=== PATIENT | male | born 1975 | race Caucasian/White ===

== ENCOUNTER 2021-09-28 09:53 | Inpatient (IN) | payer SELFPAY ==
[2021-09-28] MEDS ORDERED: Sodium Chloride 0.9% 10 ML Syringe FLUSH PRN ×3 (10:03→14:32)
--- NOTE | 2021-09-28 10:06 | EDM.PDOC ---
ED HPI GENERAL MEDICAL PROBLEM - General Chief Complaint: Respiratory Problem Stated Complaint: POSSIBLE COVID Time Seen by Provider: 09/28/21 10:05 Source of Information: Reports: Patient, RN. Denies: Old Records History Limitations: Reports: No Limitations - History of Present Illness INITIAL COMMENTS - FREE TEXT/NARRATIVE: 46 yo male is here with SOB. His was recently dx with Covid and has since recovered. He became ill initially on 09/22. Had a fever for the first 2 days only. Became SOB only on the weekend. Has no doctor and was not seen before today. Onset: Gradual Onset Date: 09/22/21 Duration: Day(s):, Getting Worse Location: Reports: Chest Quality: Reports: Other (no pain) Severity: Moderate (SOB) Improves with: Reports: Other (oxygen) Worsens with: Reports: Other (time, exertion) Context: Reports: Other (See HPI) Associated Symptoms: Reports: Cough, Shortness of Breath. 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 Denies: Fever (resolved) HEENT: Reports: No Symptoms Respiratory: Reports: Shortness of Breath, Cough. Denies: Wheezing, Pleuritic Chest Pain, Sputum, Hemoptysis Cardiovascular: Reports: No Symptoms Endocrine: Reports: No Symptoms GI/Abdominal: Reports: No Symptoms : Reports: No Symptoms Musculoskeletal: Reports: No Symptoms Skin: Reports: No Symptoms Neurological: Reports: No Symptoms ED EXAM, GENERAL - Physical Exam Exam: See Below Exam Limited By: No Limitations General Appearance: Alert, WD/WN, Mild Distress Eye Exam: Bilateral Eye: Normal Inspection Ears: Normal External Exam, Normal Canal, Hearing Grossly Normal Ear Exam: Bilateral Ear: Auricle Normal, Canal Normal Nose: Normal Inspection, No Blood Throat/Mouth: Normal Inspection, Normal Lips, Normal Oropharynx, Normal Voice, No Airway Compromise Head: Atraumatic, Normocephalic Neck: Normal Inspection Respiratory/Chest: No Accessory Muscle Use, Respiratory Distress (mild with tachypnea), Crackles Cardiovascular: Regular Rate, Rhythm, No Edema GI/Abdominal: Soft, Non-Tender Back Exam: Normal Inspection Extremities: Normal Inspection Neurological: Alert, Oriented, CN II-XII Intact, Normal Cognition, No Motor/Sen reilly Deficits Psychiatric: Normal Affect, Normal Mood Skin Exam: Warm, Dry, Intact, Normal Color, No Rash Course - Vital Signs Text/Narrative:: Dr. Galeana aware @ 1255h Last Recorded V/S: Last Vital Signs Temp 36.8 C 09/28/21 10:23 Pulse 92 09/28/21 14:36 Resp 16 09/28/21 14:36 BP 126/76 09/28/21 14:36 Pulse Ox 95 09/28/21 14:36 - Orders/Labs/Meds Orders: Active Orders 24 hr Category Date Time Status Patient Status [ADT] Routine ADT 09/28/21 14:32 Active Ambulate [RC] QID Care 09/28/21 14:32 Active Height and Weight [RC] DAILY Care 09/28/21 14:32 Active Intake and Output [RC] QSHIFT Care 09/28/21 14:32 Active Notify Provider Vital Signs [RC] ASDIRECTED Care 09/28/21 14:32 Active Oxygen Therapy [RC] PRN Care 09/28/21 14:32 Active Pulse Oximetry [RC] CONTINUOUS Care 09/28/21 14:32 Active Up to Chair [RC] QID Care 09/28/21 14:32 Active VTE/DVT Education [RC] Per Unit Routine Care 09/28/21 14:32 Active Vital Signs [RC] Q4H Care 09/28/21 14:32 Active Regular Diet [DIET] Diet 09/28/21 Lunch Active C-REACTIVE PROTEIN [CHEM] AM Lab 09/29/21 05:11 Ordered CBC WITH AUTO DIFF [HEME] AM Lab 09/29/21 05:11 Ordered COMPREHENSIVE METABOLIC PN,CMP [CHEM] AM Lab 09/29/21 05:11 Ordered D Dimer [D-DIMER QUANTITATIVE] [COAG] AM Lab 09/29/21 05:11 Ordered Acetaminophen [TylenoL] Med 09/28/21 14:32 Active 650 mg PO Q4H PRN Enoxaparin [Lovenox] Med 09/28/21 16:00 Active 40 mg SUBCUT Q24H Ondansetron [Zofran] Med 09/28/21 14:32 Active 4 mg IV Q4H PRN Remdesivir 100 mg Med 09/29/21 14:00 Active Sodium Chloride 0.9% [Normal Saline] 100 ml IV Q24H Sodium Chloride 0.9% [Saline Flush] Med 09/28/21 14:32 Active 10 ml FLUSH ASDIRECTED PRN dexAMETHasone [Decadron] Med 09/29/21 09:00 Active 6 mg IVPUSH DAILY polyethylene glycoL 3350 [MiraLAX] Med 09/28/21 14:32 Active 17 gm PO DAILY PRN Saline Lock Insert [OM.PC] Routine Oth 09/28/21 14:32 Ordered Resuscitation Status Routine Resus Stat 09/28/21 13:04 Ordered Medication Orders Acetaminophen (Acetaminophen 325 Mg Tab) 650 mg PO Q4H PRN PRN Reason: Pain (Mild 1-3)/fever Dexamethasone (Dexamethasone 4 Mg/Ml Sdv) 6 mg IVPUSH DAILY TIN Enoxaparin Sodium (Enoxaparin 40 Mg/0.4 Ml Syringe) 40 mg SUBCUT Q24H TIN Last Admin: 09/28/21 15:57 Dose: 40 mg Documented by: SWANRHO Remdesivir 100 mg/ Sodium (Chloride) 100 mls @ 100 mls/hr IV Q24H TIN Stop: 10/02/21 14:59 Ondansetron HCl (Ondansetron 4 Mg/2 Ml Sdv) 4 mg IV Q4H PRN PRN Reason: Nausea/Vomiting Polyethylene Glycol (Polyethylene Glycol 3350 Powder 17 Gm Packet) 17 gm PO DAILY PRN PRN Reason: Constipation Sodium Chloride (Sodium Chloride 0.9% 10 Ml Syringe) 10 ml FLUSH ASDIRECTED PRN PRN Reason: Keep Vein Open Labs: Laboratory Tests 09/28/21 09/28/21 09/28/21 Range/Units 10:04 10:10 10:10 WBC 12.9 H (4.5-11.0) K/uL RBC 4.03 L (4.30-5.90) M/uL Hgb 11.5 L (12.0-15.0) g/dL Hct 33.4 L (40.0-54.0) % MCV 83 (80-98) fL MCH 29 (27-31) pg MCHC 34 (32-36) % Plt Count 361 (150-400) K/uL D-Dimer, Quantitative 2529.61 H (0.0-500.0) ng/mL Sodium 129 L (140-148) mmol/L Potassium 4.4 (3.6-5.2) mmol/L Chloride 90 L (100-108) mmol/L Carbon Dioxide 21 (21-32) mmol/L Anion Gap 22.4 H (5.0-14.0) mmol/L BUN 30 H (7-18) mg/dL Creatinine 1.5 H (0.8-1.3) mg/dL Est Cr Clr Drug Dosing 62.86 mL/min Estimated GFR (MDRD) 50 L (>60) Glucose 109 H (74-106) mg/dL Calcium 9.8 (8.5-10.1) mg/dL Total Bilirubin 0.7 (0.2-1.0) mg/dL AST 108 H (15-37) U/L ALT 147 H (12-78) U/L Alkaline Phosphatase 143 H (46-116) U/L Total Protein 8.5 H (6.4-8.2) g/dL Albumin 3.2 L (3.4-5.0) g/dL Globulin 5.3 H (2.3-3.5) g/dL Albumin/Globulin Ratio 0.6 L (1.2-2.2) SARS-CoV-2 RNA (MARVIN) (NEGATIVE) 09/28/21 Range/Units 10:25 WBC (4.5-11.0) K/uL RBC (4.30-5.90) M/uL Hgb (12.0-15.0) g/dL Hct (40.0-54.0) % MCV (80-98) fL MCH (27-31) pg MCHC (32-36) % Plt Count (150-400) K/uL D-Dimer, Quantitative (0.0-500.0) ng/mL Sodium (140-148) mmol/L Potassium (3.6-5.2) mmol/L Chloride (100-108) mmol/L Carbon Dioxide (21-32) mmol/L Anion Gap (5.0-14.0) mmol/L BUN (7-18) mg/dL Creatinine (0.8-1.3) mg/dL Est Cr Clr Drug Dosing mL/min Estimated GFR (MDRD) (>60) Glucose (74-106) mg/dL Calcium (8.5-10.1) mg/dL Total Bilirubin (0.2-1.0) mg/dL AST (15-37) U/L ALT (12-78) U/L Alkaline Phosphatase (46-116) U/L Total Protein (6.4-8.2) g/dL Albumin (3.4-5.0) g/dL Globulin (2.3-3.5) g/dL Albumin/Globulin Ratio (1.2-2.2) SARS-CoV-2 RNA (MARVIN) Positive H (NEGATIVE) Meds: Medications Generic Name Dose Route Start Last Admin Trade Name Freq PRN Reason Stop Dose Admin Acetaminophen 650 mg 09/28/21 14:32 Acetaminophen 325 Mg Tab PO Q4H PRN Pain (Mild 1-3)/fever Dexamethasone 6 mg 09/29/21 09:00 Dexamethasone 4 Mg/Ml Sdv IVPUSH DAILY TIN Enoxaparin Sodium 40 mg 09/28/21 16:00 09/28/21 15:57 Enoxaparin 40 Mg/0.4 Ml Syringe SUBCUT 40 mg Q24H TIN Administration Remdesivir 100 mg/ Sodium 100 mls @ 100 mls/hr 09/29/21 14:00 Chloride IV 10/02/21 14:59 Q24H TIN Ondansetron HCl 4 mg 09/28/21 14:32 Ondansetron 4 Mg/2 Ml Sdv IV Q4H PRN Nausea/Vomiting Polyethylene Glycol 17 gm 09/28/21 14:32 Polyethylene Glycol 3350 Powder 17 Gm Packet PO DAILY PRN Constipation Sodium Chloride 10 ml 09/28/21 14:32 Sodium Chloride 0.9% 10 Ml Syringe FLUSH ASDIRECTED PRN Keep Vein Open Discontinued Medications Generic Name Dose Route Start Last Admin Trade Name Freq PRN Reason Stop Dose Admin Dexamethasone 6 mg 09/28/21 12:58 09/28/21 13:52 Dexamethasone 4 Mg/Ml Sdv IVPUSH 09/28/21 12:59 6 mg ONETIME ONE Administration Sodium Chloride 1,000 mls @ 125 mls/hr 09/28/21 11:15 Normal Saline IV ASDIRECTED TIN Sodium Chloride 100 mls @ 4 mls/sec 09/28/21 11:30 09/28/21 12:12 Normal Saline IV 09/28/21 11:31 4 mls/sec ASDIRECTED TIN Administration Remdesivir 200 mg/ Sodium 250 mls @ 250 mls/hr 09/28/21 13:30 09/28/21 13:52 Chloride IV 09/28/21 14:29 250 mls/hr ONETIME ONE Administration Iopamidol 100 ml 09/28/21 11:30 09/28/21 12:12 Iopamidol 755 Mg/Ml 100 Ml Bottle IV 09/28/21 11:31 100 ml . DIRECTED TIN Administration Sodium Chloride 10 ml 09/28/21 10:03 09/28/21 10:35 Sodium Chloride 0.9% 10 Ml Syringe FLUSH 10 ml ASDIRECTED PRN Administration Keep Vein Open Sodium Chloride 10 ml 09/28/21 11:26 09/28/21 12:03 Sodium Chloride 0.9% 10 Ml Syringe FLUSH 09/28/21 11:27 10 ml ONETIME PRN Administration per radiology protocol - Radiology Interpretation Free Text/Narrative:: Angio Chest- Impression: 1. No pulmonary emboli. 2. Bilateral diffuse ground-glass opacities with basilar dense consolidation reflecting COVID. Please note that all CT scans at this facility use dose modulation, iterative reconstruction, and/or weight-based dosing when appropriate to reduce radiation dose to as low as reasonably achievable. Dictated by Radha Nye MD @ 09/28/2021 12:55:[address] Results Date: 09/28/21 CT Results Time: 12:57 Departure - Departure Time of Disposition: 14:35 Disposition: Admitted As Inpatient 65 Condition: Serious Clinical Impression: COVID-19, Hypoxemia - Discharge Information *PRESCRIPTION DRUG MONITORING PROGRAM REVIEWED*: Not Applicable *COPY OF PRESCRIPTION DRUG MONITORING REPORT IN PATIENT MIKAELA: Not Applicable Sepsis Event Note (ED) - Focused Exam Vital Signs: Vital Signs Temp Pulse Resp BP Pulse Ox 09/28/21 13:00 98 24 H 94 L 09/28/21 10:23 36.8 C 96 21 H 118/79 91 L 09/28/21 10:04 21 H 91 L 09/28/21 10:00 36.8 C 96 27 H 118/79 78 L
[2021-09-28] MEDS ORDERED: Sodium Chloride 0.9% 1,000 ML IV SCH (11:15)
[2021-09-28] MEDS ORDERED: Sodium Chloride 0.9% 100 ML IV SCH (11:30)
[2021-09-28] MEDS ORDERED: Iopamidol 755 Mg/ML 100 ML Bottle IV SCH (11:30)
--- NOTE | 2021-09-28 12:57 | CRLCT ---
For Patients: As a result of the Century Cures Act, medical imaging exams and procedure reports are released immediately into your electronic medical record. You may view this report before your referring provider. If you have questions, please contact your health care provider. Indication: Shortness of breath. COVID Technique: Contrast enhanced CT chest. 100 mL Isovue 370 Comparison: No comparison Findings: Normal caliber thoracic aorta. No pulmonary emboli. Heart size is normal. No pericardial effusion. Diffuse bilateral ground-glass opacities with dense consolidation lower lobes reflecting COVID. Small hiatal hernia. No suspicious bony lesions. Impression: 1. No pulmonary emboli. 2. Bilateral diffuse ground-glass opacities with basilar dense consolidation reflecting COVID. Please note that all CT scans at this facility use dose modulation, iterative reconstruction, and/or weight-based dosing when appropriate to reduce radiation dose to as low as reasonably achievable. Dictated by Radha Nye MD @ 09/28/2021 12:55:38 PM (Electronically Signed)
[2021-09-28] MEDS ORDERED: Dexamethasone 4 MG/ML SDV IVPUSH ONE (12:58)
[2021-09-28] MEDS ORDERED: REMDESIVIR 200 MG in Sodium Chloride 0.9% 250 ML IV ONE ×2 (12:58→13:30)
--- NOTE | 2021-09-28 13:09 | PCM.HP.2 ---
H&P History of Present Illness - General Date of Service: 09/28/21 Admit Problem/Dx: Admission Diagnosis/Problem Admission Diagnosis/Problem Hypoxia Source of Information: Patient, Provider, RN Notes Reviewed History Limitations: Reports: No Limitations - History of Present Illness Initial Comments - Free Text/Narative: Mr. Bishop is a 46-year-old gentleman who was admitted through the emergency department with weakness, shortness of breath, and hypoxia, secondary to COVID- 19 infection with bilateral Covid pneumonia. He is not felt well over the past 6 days with fever and chills that is now resolved. Anorexia and progressive weakness. He began to experience symptoms of shortness of breath 2 days ago associated with a dry cough. Symptoms have progressively worsened to the point that he was short of breath with minimal exertion. On presentation to the emergency department he was noted to have oxygen saturation in the 70s. D-dimer was found to be elevated so he underwent CT scan of the chest with PE protocol. Showed no evidence of pulmonary emboli but did document bilateral groundglass infiltrates consistent with COVID-19 infection. - Related Data Allergies/Adverse Reactions: Allergies Allergy/AdvReac Type Severity Reaction Status Date / Time No Known Allergies Allergy Verified 09/28/21 10:18 Home Medications: Home Meds NK [No Known Home Meds] 09/28/21 [History] Past Medical History HEENT History: Reports: Impaired Vision - Infectious Disease History Infectious Disease History: Reports: Chicken Pox Social & Family History - Tobacco Use Tobacco Use Status *Q: Never Tobacco User H&P Review of Systems - Review of Systems: Review Of Systems: See Below General: Reports: Weakness, Fatigue, Decreased Appetite. Denies: Fever, Chills HEENT: Reports: No Symptoms Pulmonary: Reports: Shortness of Breath, Cough. Denies: Wheezing, Pleuritic Chest Pain, Sputum, Hemoptysis Cardiovascular: Reports: Dyspnea on Exertion. Denies: Chest Pain, Palpitations, Orthopnea, PND, Edema, Lightheadedness Gastrointestinal: Reports: No Symptoms Genitourinary: Reports: No Symptoms Musculoskeletal: Reports: No Symptoms Skin: Reports: No Symptoms Psychiatric: Reports: No Symptoms Neurological: Reports: No Symptoms Hematologic/Lymphatic: Reports: No Symptoms Immunologic: Reports: No Symptoms Exam - Exam Exam: See Below - Vital Signs Vital Signs: Last Vital Signs Temp 98.2 F 09/28/21 10:23 Pulse 96 09/28/21 10:23 Resp 21 H 09/28/21 10:23 BP 118/79 09/28/21 10:23 Pulse Ox 91 L 09/28/21 10:23 Weight: 180 lb - Exam Quality Assessment: Supplemental Oxygen, DVT Prophylaxis General: Alert, Oriented, Cooperative, Moderate Distress HEENT: Conjunctiva Clear, Hearing Intact, Mucosa Moist & [place], Normal Nasal Septum, Posterior Pharynx Clear, Pupils Equal Neck: Supple, Trachea Midline, +2 Carotid Pulse wo Bruit Lungs: Normal Respiratory Effort, Rales. No: Crackles, Rhonchi, Wheezing Cardiovascular: Regular Rate, Regular Rhythm, Normal S1, Normal S2. No: Systolic Murmur, Diastolic Murmur GI/Abdominal Exam: Soft, Non-Tender, No Organomegaly, No Distention Back Exam: Normal Inspection, Full Range of Motion Extremities: Non-Tender, No Pedal Edema Skin: Warm, Dry, Intact Neurological: Cranial Nerves Intact, Strength Equal Bilateral, Normal Speech, Normal Tone, Sensation Intact. No: Focal Deficit Neuro Extensive - Mental Status: Alert, Oriented x3, Normal Mood/Affect, Normal Cognition, Memory Intact - Patient Data Lab Results Last 24 hrs: Laboratory Results - last 24 hr 09/28/21 09/28/21 09/28/21 Range/Units 10:04 10:10 10:10 WBC 12.9 H (4.5-11.0) K/uL RBC 4.03 L (4.30-5.90) M/uL Hgb 11.5 L (12.0-15.0) g/dL Hct 33.4 L (40.0-54.0) % MCV 83 (80-98) fL MCH 29 (27-31) pg MCHC 34 (32-36) % Plt Count 361 (150-400) K/uL D-Dimer, Quantitative 2529.61 H (0.0-500.0) ng/mL Sodium 129 L (140-148) mmol/L Potassium 4.4 (3.6-5.2) mmol/L Chloride 90 L (100-108) mmol/L Carbon Dioxide 21 (21-32) mmol/L Anion Gap 22.4 H (5.0-14.0) mmol/L BUN 30 H (7-18) mg/dL Creatinine 1.5 H (0.8-1.3) mg/dL Est Cr Clr Drug Dosing 62.86 mL/min Estimated GFR (MDRD) 50 L (>60) Glucose 109 H (74-106) mg/dL Calcium 9.8 (8.5-10.1) mg/dL Total Bilirubin 0.7 (0.2-1.0) mg/dL AST 108 H (15-37) U/L ALT 147 H (12-78) U/L Alkaline Phosphatase 143 H (46-116) U/L Total Protein 8.5 H (6.4-8.2) g/dL Albumin 3.2 L (3.4-5.0) g/dL Globulin 5.3 H (2.3-3.5) g/dL Albumin/Globulin Ratio 0.6 L (1.2-2.2) SARS-CoV-2 RNA (MARVIN) (NEGATIVE) 09/28/21 Range/Units 10:25 WBC (4.5-11.0) K/uL RBC (4.30-5.90) M/uL Hgb (12.0-15.0) g/dL Hct (40.0-54.0) % MCV (80-98) fL MCH (27-31) pg MCHC (32-36) % Plt Count (150-400) K/uL D-Dimer, Quantitative (0.0-500.0) ng/mL Sodium (140-148) mmol/L Potassium (3.6-5.2) mmol/L Chloride (100-108) mmol/L Carbon Dioxide (21-32) mmol/L Anion Gap (5.0-14.0) mmol/L BUN (7-18) mg/dL Creatinine (0.8-1.3) mg/dL Est Cr Clr Drug Dosing mL/min Estimated GFR (MDRD) (>60) Glucose (74-106) mg/dL Calcium (8.5-10.1) mg/dL Total Bilirubin (0.2-1.0) mg/dL AST (15-37) U/L ALT (12-78) U/L Alkaline Phosphatase (46-116) U/L Total Protein (6.4-8.2) g/dL Albumin (3.4-5.0) g/dL Globulin (2.3-3.5) g/dL Albumin/Globulin Ratio (1.2-2.2) SARS-CoV-2 RNA (MARVIN) Positive H (NEGATIVE) Result Diagrams: 09/28/21 10:04 09/28/21 10:10 Sepsis Event Note - Evaluation Sepsis Screening Result: Possible Sepsis Risk - Focused Exam Vital Signs: Vital Signs Temp Pulse Resp BP Pulse Ox 09/28/21 10:23 98.2 F 96 21 H 118/79 91 L 09/28/21 10:04 21 H 91 L 09/28/21 10:00 98.2 F 96 27 H 118/79 78 L *Q Meaningful Use (ADM) - VTE Risk Assess *Q Each Risk Factor Represents 1 Point: Age 41 - 59 years, Serious lung disease including pneumonia, Other Risk Factor (COVID-19 infection) Total Score 1 Point Risk Factors: 3 Each Risk Factor Represents 2 Points: None Total Score 2 Point Risk Factors: 0 Each Risk Factor Represents 3 Points: None Total Score 3 Point Risk Factors: 0 Each Risk Factor Represents 5 Points: None Total Score 5 Point Risk Factors: 0 Venous Thromboembolism Risk Factor Score *Q: 3 Problem List Initiated/Reviewed/Updated: Yes Orders Last 24hrs: Active Orders 24 hr Category Date Time Status Patient Status Manage Transfer [TRANSFER] Routine ADT 09/28/21 13:03 Ordered Oxygen Therapy Adult [Oxygen Therapy, ED] [RC] Care 09/28/21 10:16 Active ASDIRECTED HEPATIC FUNCTION PANEL,[facility] [CHEM] DAILY Lab 09/29/21 13:00 Ordered HEPATIC FUNCTION PANEL,[facility] [CHEM] DAILY Lab 09/30/21 13:00 Ordered HEPATIC FUNCTION PANEL,[facility] [CHEM] DAILY Lab 10/01/21 13:00 Ordered HEPATIC FUNCTION PANEL,[facility] [CHEM] DAILY Lab 10/02/21 13:00 Ordered UA W/MICROSCOPIC [URIN] Stat Lab 09/28/21 10:04 Ordered Remdesivir 200 mg Med 09/28/21 13:30 Active Sodium Chloride 0.9% [Normal Saline] 250 ml IV ONETIME Sodium Chloride 0.9% [Normal Saline] 1,000 ml Med 09/28/21 11:15 Active IV ASDIRECTED Sodium Chloride 0.9% [Saline Flush] Med 09/28/21 10:03 Active 10 ml FLUSH ASDIRECTED PRN Saline Lock Insert [OM.PC] Routine Oth 09/28/21 10:03 Ordered Resuscitation Status Routine Resus Stat 09/28/21 13:04 Ordered Medication Orders Sodium Chloride (Normal Saline) 1,000 mls @ 125 mls/hr IV ASDIRECTED TIN Remdesivir 200 mg/ Sodium (Chloride) 250 mls @ 250 mls/hr IV ONETIME ONE Stop: 09/28/21 14:29 Sodium Chloride (Sodium Chloride 0.9% 10 Ml Syringe) 10 ml FLUSH ASDIRECTED PRN PRN Reason: Keep Vein Open Last Admin: 09/28/21 10:35 Dose: 10 ml Documented by: NOEMÍ Assessment/Plan Comment:: ASSESSMENT AND PLAN COVID-19 PNEUMONIA-associated with acute hypoxic respiratory failure. Symptomatic for 6 days, progressive shortness of breath over the last 2 days. Presented with significant hypoxia and an oxygen saturation of 70% on room air. -Supplemental oxygen as needed -Limit IV fluids -Prone ventilation if possible -Remdesivir 200 mg IV today, then 100 mg IV for an additional 4 days, today is day 1 of 5 -Decadron 6 mg IV daily, today is day 1 -Follow-up labs in a.m. ACUTE HYPOXIC RESPIRATORY FAILURE -Management as above MAINTENANCE ISSUES -DVT prophylaxis; Lovenox 40 mg subcu daily -GI prophylaxis; not indicated -Armstrong catheter; not indicated -Nutrition; regular diet -Nicotine dependence; not required CODE STATUS-FULL CODE ADMISSION STATUS-patient will be admitted to inpatient status, expect at least a 2 night hospital stay for evaluation and management of problems as outlined above. At the time of this admission I do not reasonably expected evaluation and management of this problem will require more than a 96 hour hospital stay. DISPOSITION-anticipate discharge to home after the hospital stay. - Mortality Measure Prognosis:: Good
[2021-09-28] MEDS ORDERED: Polyethylene Glycol 3350 Powder 17 GM Packet PO PRN (14:32)
[2021-09-28] MEDS ORDERED: Acetaminophen 325 MG Tab PO PRN (14:32)
[2021-09-28] MEDS ORDERED: Ondansetron 4 MG/2 ML SDV IV PRN (14:32)
[2021-09-28] MEDS: Enoxaparin 40 MG/0.4 ML Syringe SUBCUT SCH (15:57)
[2021-09-29] MEDS: Dexamethasone 4 MG/ML SDV IVPUSH SCH (08:11)
--- NOTE | 2021-09-29 13:37 | PCM.PN ---
- General Info Date of Service: 09/29/21 Subjective Update: No acute events overnight though the patient did have increasing supplemental oxygen requirements. He was requiring 13 to 14 L of supplemental oxygen which was a large increase from the time of admission. Today he reports no significant shortness of breath at rest. He does get short of breath walking to the bathroom and back. Minimal cough. No abdominal pain, nausea or diarrhea. He reports that he feels much better than at the time of admission. We did talk about adding baricitinib to help with his Covid infection given the significant progression in his supplemental oxygen requirements. - Patient Data Vitals - Most Recent: Last Vital Signs Temp 36.2 C 09/29/21 11:17 Pulse 107 H 09/29/21 11:17 Resp 18 09/29/21 11:17 BP 114/69 09/29/21 11:17 Pulse Ox 94 L 09/29/21 12:51 Weight - Most Recent: 79.379 kg Lab Results Last 24 Hours: Laboratory Results - last 24 hr 09/29/21 09/29/21 09/29/21 Range/Units 05:45 05:45 05:45 WBC 13.2 H (4.5-11.0) K/uL RBC 3.77 L (4.30-5.90) M/uL Hgb 10.7 L (12.0-15.0) g/dL Hct 31.2 L (40.0-54.0) % MCV 83 (80-98) fL MCH 28 (27-31) pg MCHC 34 (32-36) % Plt Count 418 H (150-400) K/uL Neut % (Auto) 76.1 H (36-66) % Lymph % (Auto) 7.0 L (24-44) % [place] % (Auto) 3.2 (2-6) % Eos % (Auto) 0.0 L (2-4) % Baso % (Auto) 0.7 (0-1) % Add Manual Diff Yes Neutrophils % (Manual) 78 H (36-66) % Band Neutrophils % 7 (5-11) % Lymphocytes % (Manual) 9 L (24-44) % Monocytes % (Manual) 6 (2-6) % D-Dimer, Quantitative 1622.64 H (0.0-500.0) ng/mL Sodium 130 L (140-148) mmol/L Potassium 4.6 (3.6-5.2) mmol/L Chloride 93 L (100-108) mmol/L Carbon Dioxide 24 (21-32) mmol/L Anion Gap 17.6 H (5.0-14.0) mmol/L BUN 34 H (7-18) mg/dL Creatinine 1.5 H (0.8-1.3) mg/dL Est Cr Clr Drug Dosing 62.86 mL/min Estimated GFR (MDRD) 50 L (>60) BUN/Creatinine Ratio Not Reportable Glucose 117 H (74-106) mg/dL Calcium 8.7 (8.5-10.1) mg/dL Total Bilirubin 0.5 (0.2-1.0) mg/dL AST 64 H (15-37) U/L ALT 115 H (12-78) U/L Alkaline Phosphatase 144 H (46-116) U/L C-Reactive Protein 22.32 H (0.0-0.3) mg/dL Total Protein 7.1 (6.4-8.2) g/dL Albumin 3.0 L (3.4-5.0) g/dL Globulin 4.1 H (2.3-3.5) g/dL Albumin/Globulin Ratio 0.7 L (1.2-2.2) Med Orders - Current: Current Medications Acetaminophen (Acetaminophen 325 Mg Tab) 650 mg PO Q4H PRN PRN Reason: Pain (Mild 1-3)/fever Baricitinib (Baricitinib 2 Mg Tab) 4 mg PO Q24H [facility] Stop: 10/12/21 13:46 Dexamethasone (Dexamethasone 4 Mg/Ml Sdv) 6 mg IVPUSH DAILY [facility] Stop: 10/07/21 09:01 Last Admin: 09/29/21 08:11 Dose: 6 mg Documented by: Enoxaparin Sodium (Enoxaparin 40 Mg/0.4 Ml Syringe) 40 mg SUBCUT Q24H [facility] Last Admin: 09/28/21 15:57 Dose: 40 mg Documented by: Remdesivir 100 mg/ Sodium (Chloride) 100 mls @ 100 mls/hr IV Q24H [facility] Stop: 10/02/21 14:59 Ondansetron HCl (Ondansetron 4 Mg/2 Ml Sdv) 4 mg IV Q4H PRN PRN Reason: Nausea/Vomiting Polyethylene Glycol (Polyethylene Glycol 3350 Powder 17 Gm Packet) 17 gm PO DAILY PRN PRN Reason: Constipation Sodium Chloride (Sodium Chloride 0.9% 10 Ml Syringe) 10 ml FLUSH ASDIRECTED PRN PRN Reason: Keep Vein Open Discontinued Medications Dexamethasone (Dexamethasone 4 Mg/Ml Sdv) 6 mg IVPUSH ONETIME ONE Stop: 09/28/21 12:59 Last Admin: 09/28/21 13:52 Dose: 6 mg Documented by: Sodium Chloride (Normal Saline) 1,000 mls @ 125 mls/hr IV ASDIRECTED TIN Sodium Chloride (Normal Saline) 100 mls @ 4 mls/sec IV ASDIRECTED TIN Stop: 09/28/21 11:31 Last Admin: 09/28/21 12:12 Dose: 4 mls/sec Documented by: Remdesivir 200 mg/ Sodium (Chloride) 250 mls @ 250 mls/hr IV ONETIME ONE Stop: 09/28/21 14:29 Last Admin: 09/28/21 13:52 Dose: 250 mls/hr Documented by: Iopamidol (Iopamidol 755 Mg/Ml 100 Ml Bottle) 100 ml IV . DIRECTED TIN Stop: 09/28/21 11:31 Last Admin: 09/28/21 12:12 Dose: 100 ml Documented by: Sodium Chloride (Sodium Chloride 0.9% 10 Ml Syringe) 10 ml FLUSH ASDIRECTED PRN PRN Reason: Keep Vein Open Last Admin: 09/28/21 10:35 Dose: 10 ml Documented by: Sodium Chloride (Sodium Chloride 0.9% 10 Ml Syringe) 10 ml FLUSH ONETIME PRN PRN Reason: per radiology protocol Stop: 09/28/21 11:27 Last Admin: 09/28/21 12:03 Dose: 10 ml Documented by: - Exam Quality Assessment: Supplemental Oxygen General: Alert, Oriented, Cooperative, No Acute Distress Lungs: Normal Respiratory Effort, Crackles (few mild diffuse ) Cardiovascular: Regular Rate, Regular Rhythm GI/Abdominal Exam: Soft, No Distention - Patient Data Lab Results Last 24 hrs: Laboratory Results - last 24 hr 09/29/21 09/29/21 09/29/21 Range/Units 05:45 05:45 05:45 WBC 13.2 H (4.5-11.0) K/uL RBC 3.77 L (4.30-5.90) M/uL Hgb 10.7 L (12.0-15.0) g/dL Hct 31.2 L (40.0-54.0) % MCV 83 (80-98) fL MCH 28 (27-31) pg MCHC 34 (32-36) % Plt Count 418 H (150-400) K/uL Neut % (Auto) 76.1 H (36-66) % Lymph % (Auto) 7.0 L (24-44) % [place] % (Auto) 3.2 (2-6) % Eos % (Auto) 0.0 L (2-4) % Baso % (Auto) 0.7 (0-1) % Add Manual Diff Yes Neutrophils % (Manual) 78 H (36-66) % Band Neutrophils % 7 (5-11) % Lymphocytes % (Manual) 9 L (24-44) % Monocytes % (Manual) 6 (2-6) % D-Dimer, Quantitative 1622.64 H (0.0-500.0) ng/mL Sodium 130 L (140-148) mmol/L Potassium 4.6 (3.6-5.2) mmol/L Chloride 93 L (100-108) mmol/L Carbon Dioxide 24 (21-32) mmol/L Anion Gap 17.6 H (5.0-14.0) mmol/L BUN 34 H (7-18) mg/dL Creatinine 1.5 H (0.8-1.3) mg/dL Est Cr Clr Drug Dosing 62.86 mL/min Estimated GFR (MDRD) 50 L (>60) BUN/Creatinine Ratio Not Reportable Glucose 117 H (74-106) mg/dL Calcium 8.7 (8.5-10.1) mg/dL Total Bilirubin 0.5 (0.2-1.0) mg/dL AST 64 H (15-37) U/L ALT 115 H (12-78) U/L Alkaline Phosphatase 144 H (46-116) U/L C-Reactive Protein 22.32 H (0.0-0.3) mg/dL Total Protein 7.1 (6.4-8.2) g/dL Albumin 3.0 L (3.4-5.0) g/dL Globulin 4.1 H (2.3-3.5) g/dL Albumin/Globulin Ratio 0.7 L (1.2-2.2) Result Diagrams: 09/29/21 05:45 09/29/21 05:45 Sepsis Event Note - Evaluation Sepsis Screening Result: No Definite Risk - Focused Exam Vital Signs: Vital Signs Temp Pulse Resp BP Pulse Ox 09/29/21 12:51 94 L 09/29/21 11:17 36.2 C 107 H 18 114/69 94 L 09/29/21 08:00 36.9 C 93 18 129/82 95 09/29/21 07:20 94 L 09/29/21 04:55 90 16 90 L 09/29/21 03:48 85 16 89 L 09/29/21 01:46 91 L - Problem List Review Problem List Initiated/Reviewed/Updated: Yes - My Orders Last 24 Hours: My Active Orders 09/29/21 13:45 Baricitinib [Olumiant] 4 mg PO Q24H 09/30/21 05:00 CBC W/O DIFF,HEMOGRAM [HEME] Timed (1) COMPREHENSIVE METABOLIC PN,CMP [CHEM] Timed - Plan Plan:: ASSESSMENT AND PLAN COVID-19 PNEUMONIA-associated with acute hypoxic respiratory failure. Symptomatic onset 09/22. Progressive hypoxic respiratory failure overnight but seems to have stabilized this morning. -Supplemental oxygen as needed -Limit IV fluids -Prone ventilation if possible -Repeat D-dimer and CRP in the morning -Remdesivir 200 mg IV today, then 100 mg IV for an additional 4 days, (day 2 of 5) -Decadron 6 mg IV daily (day 2) -Start baricitinib (day 1) -Follow-up labs in a.m. MAINTENANCE ISSUES -DVT prophylaxis; Lovenox 40 mg subcu daily -GI prophylaxis; not indicated -Armstrong catheter; not indicated -Nutrition; regular diet DISPOSITION-anticipate discharge to home after the hospital stay. Maksim Carlisle MD
[2021-09-29] MEDS: REMDESIVIR 100 MG in Sodium Chloride 0.9% 100 ML IV SCH (14:28)
[2021-09-29] MEDS: Enoxaparin 40 MG/0.4 ML Syringe SUBCUT SCH (15:50)
[2021-09-30] MEDS ORDERED: Calcium Carbonate 500 MG Tab.Chew PO PRN (01:56)
[2021-09-30] MEDS: Dexamethasone 4 MG/ML SDV IVPUSH SCH (09:21)
--- NOTE | 2021-09-30 14:00 | PCM.PN ---
- General Info Date of Service: 09/30/21 Subjective Update: There were no acute events overnight. Patient feels well today. He reports no shortness of breath and minimal cough. He is able to walk to the bathroom and back without significant difficulty. No nausea. Appetite good. He was on 13 to 14 L of oxygen overnight but is now down to 8 L of oxygen. Functional Status: Reports: Pain Controlled, Tolerating Diet - Patient Data Vitals - Most Recent: Last Vital Signs Temp 36.6 C 09/30/21 11:00 Pulse 99 09/30/21 11:00 Resp 18 09/30/21 11:00 BP 116/64 09/30/21 11:00 Pulse Ox 96 09/30/21 13:13 Weight - Most Recent: 79.379 kg I&O - Last 24 Hours: Intake & Output 09/29/21 09/30/21 09/30/21 22:59 06:59 14:59 Intake Total 240 500 Balance 240 500 Lab Results Last 24 Hours: Laboratory Results - last 24 hr 09/30/21 09/30/21 Range/Units 05:00 05:30 WBC 14.3 H (4.5-11.0) K/uL RBC 3.83 L (4.30-5.90) M/uL Hgb 10.9 L (12.0-15.0) g/dL Hct 32.4 L (40.0-54.0) % MCV 85 (80-98) fL MCH 29 (27-31) pg MCHC 34 (32-36) % Plt Count 525 H (150-400) K/uL Sodium 132 L (140-148) mmol/L Potassium 4.9 (3.6-5.2) mmol/L Chloride 95 L (100-108) mmol/L Carbon Dioxide 24 (21-32) mmol/L Anion Gap 17.9 H (5.0-14.0) mmol/L BUN 33 H (7-18) mg/dL Creatinine 1.4 H (0.8-1.3) mg/dL Est Cr Clr Drug Dosing 67.35 mL/min Estimated GFR (MDRD) 54 L (>60) Glucose 130 H (74-106) mg/dL Calcium 8.8 (8.5-10.1) mg/dL Total Bilirubin 0.5 (0.2-1.0) mg/dL AST 45 H (15-37) U/L ALT 94 H (12-78) U/L Alkaline Phosphatase 130 H (46-116) U/L Total Protein 7.0 (6.4-8.2) g/dL Albumin 3.0 L (3.4-5.0) g/dL Globulin 4.0 H (2.3-3.5) g/dL Albumin/Globulin Ratio 0.8 L (1.2-2.2) Med Orders - Current: Current Medications Acetaminophen (Acetaminophen 325 Mg Tab) 650 mg PO Q4H PRN PRN Reason: Pain (Mild 1-3)/fever Baricitinib (Baricitinib 2 Mg Tab) 4 mg PO Q24H [facility] Stop: 10/12/21 14:01 Last Admin: 09/29/21 14:29 Dose: 4 mg Documented by: Calcium Carbonate/Glycine (Calcium Carbonate 500 Mg Tab.Chew) 1,000 mg PO Q2H PRN PRN Reason: Indigestion Last Admin: 09/30/21 02:10 Dose: 1,000 mg Documented by: Dexamethasone (Dexamethasone 4 Mg/Ml Sdv) 6 mg IVPUSH DAILY [facility] Stop: 10/07/21 09:01 Last Admin: 09/30/21 09:21 Dose: 6 mg Documented by: Enoxaparin Sodium (Enoxaparin 40 Mg/0.4 Ml Syringe) 40 mg SUBCUT Q24H [facility] Last Admin: 09/29/21 15:50 Dose: 40 mg Documented by: Remdesivir 100 mg/ Sodium (Chloride) 100 mls @ 100 mls/hr IV Q24H [facility] Stop: 10/02/21 14:59 Last Admin: 09/29/21 14:28 Dose: 100 mls/hr Documented by: Ondansetron HCl (Ondansetron 4 Mg/2 Ml Sdv) 4 mg IV Q4H PRN PRN Reason: Nausea/Vomiting Polyethylene Glycol (Polyethylene Glycol 3350 Powder 17 Gm Packet) 17 gm PO DAILY PRN PRN Reason: Constipation Sodium Chloride (Sodium Chloride 0.9% 10 Ml Syringe) 10 ml FLUSH ASDIRECTED PRN PRN Reason: Keep Vein Open Discontinued Medications Dexamethasone (Dexamethasone 4 Mg/Ml Sdv) 6 mg IVPUSH ONETIME ONE Stop: 09/28/21 12:59 Last Admin: 09/28/21 13:52 Dose: 6 mg Documented by: Sodium Chloride (Normal Saline) 1,000 mls @ 125 mls/hr IV ASDIRECTED TIN Sodium Chloride (Normal Saline) 100 mls @ 4 mls/sec IV ASDIRECTED TIN Stop: 09/28/21 11:31 Last Admin: 09/28/21 12:12 Dose: 4 mls/sec Documented by: Remdesivir 200 mg/ Sodium (Chloride) 250 mls @ 250 mls/hr IV ONETIME ONE Stop: 09/28/21 14:29 Last Admin: 09/28/21 13:52 Dose: 250 mls/hr Documented by: Iopamidol (Iopamidol 755 Mg/Ml 100 Ml Bottle) 100 ml IV . DIRECTED TIN Stop: 09/28/21 11:31 Last Admin: 09/28/21 12:12 Dose: 100 ml Documented by: Sodium Chloride (Sodium Chloride 0.9% 10 Ml Syringe) 10 ml FLUSH ASDIRECTED PRN PRN Reason: Keep Vein Open Last Admin: 09/28/21 10:35 Dose: 10 ml Documented by: Sodium Chloride (Sodium Chloride 0.9% 10 Ml Syringe) 10 ml FLUSH ONETIME PRN PRN Reason: per radiology protocol Stop: 09/28/21 11:27 Last Admin: 09/28/21 12:03 Dose: 10 ml Documented by: - Exam Quality Assessment: Supplemental Oxygen General: Alert, Oriented, Cooperative, No Acute Distress Lungs: Normal Respiratory Effort GI/Abdominal Exam: Soft, No Distention Extremities: No Pedal Edema Skin: Warm, Dry Psy/Mental Status: Alert, Normal Affect - Patient Data Lab Results Last 24 hrs: Laboratory Results - last 24 hr 09/30/21 09/30/21 Range/Units 05:00 05:30 WBC 14.3 H (4.5-11.0) K/uL RBC 3.83 L (4.30-5.90) M/uL Hgb 10.9 L (12.0-15.0) g/dL Hct 32.4 L (40.0-54.0) % MCV 85 (80-98) fL MCH 29 (27-31) pg MCHC 34 (32-36) % Plt Count 525 H (150-400) K/uL Sodium 132 L (140-148) mmol/L Potassium 4.9 (3.6-5.2) mmol/L Chloride 95 L (100-108) mmol/L Carbon Dioxide 24 (21-32) mmol/L Anion Gap 17.9 H (5.0-14.0) mmol/L BUN 33 H (7-18) mg/dL Creatinine 1.4 H (0.8-1.3) mg/dL Est Cr Clr Drug Dosing 67.35 mL/min Estimated GFR (MDRD) 54 L (>60) Glucose 130 H (74-106) mg/dL Calcium 8.8 (8.5-10.1) mg/dL Total Bilirubin 0.5 (0.2-1.0) mg/dL AST 45 H (15-37) U/L ALT 94 H (12-78) U/L Alkaline Phosphatase 130 H (46-116) U/L Total Protein 7.0 (6.4-8.2) g/dL Albumin 3.0 L (3.4-5.0) g/dL Globulin 4.0 H (2.3-3.5) g/dL Albumin/Globulin Ratio 0.8 L (1.2-2.2) Result Diagrams: 09/30/21 05:30 09/30/21 05:00 Sepsis Event Note - Evaluation Sepsis Screening Result: Possible Sepsis Risk - Focused Exam Vital Signs: Vital Signs Temp Temp Pulse Resp BP Pulse Ox 09/30/21 13:13 96 09/30/21 12:25 97 09/30/21 12:00 97 09/30/21 11:00 36.6 C 99 18 116/64 96 09/30/21 07:51 36.1 C 91 18 128/86 94 L 09/30/21 07:33 96 09/30/21 02:09 36.5 C 98 17 133/83 98 - Problem List Review Problem List Initiated/Reviewed/Updated: Yes - My Orders Last 24 Hours: My Active Orders 09/29/21 14:00 Baricitinib [Olumiant] 4 mg PO Q24H 09/30/21 01:56 Calcium Carbonate [Tums] 1,000 mg PO Q2H PRN 10/01/21 05:00 BASIC METABOLIC PANEL,BMP [CHEM] Timed CBC W/O DIFF,HEMOGRAM [HEME] Timed (1) CRP [C-REACTIVE PROTEIN] [CHEM] Timed D-DIMER QUANTITATIVE [COAG] Timed - Plan Plan:: ASSESSMENT AND PLAN COVID-19 PNEUMONIA-associated with acute hypoxic respiratory failure. Symptomatic onset 09/22. Progressive hypoxic respiratory failure overnight during the early part of the hospital stay. Seems to be improving with a significant decrease in his supplemental oxygen requirements since this morning. -Supplemental oxygen as needed -Limit IV fluids -Prone ventilation if possible -Repeat D-dimer and CRP every 2 to 3 days -Remdesivir 200 mg IV today, then 100 mg IV for an additional 4 days, (day 3 of 5) -Decadron 6 mg IV daily (day 3) -Start baricitinib (day 2) -Follow-up labs in a.m. MAINTENANCE ISSUES -DVT prophylaxis; Lovenox 40 mg subcu daily -GI prophylaxis; not indicated -Armstrong catheter; not indicated -Nutrition; regular diet DISPOSITION-anticipate discharge to home after the hospital stay. Maksim Carlisle MD
[2021-09-30] MEDS: REMDESIVIR 100 MG in Sodium Chloride 0.9% 100 ML IV SCH (15:09)
[2021-09-30] MEDS: Enoxaparin 40 MG/0.4 ML Syringe SUBCUT SCH (15:13)
[2021-10-01] MEDS: Dexamethasone 4 MG/ML SDV IVPUSH SCH (08:08)
[2021-10-01] MEDS: REMDESIVIR 100 MG in Sodium Chloride 0.9% 100 ML IV SCH (14:12)
--- NOTE | 2021-10-01 14:34 | PCM.PN ---
- General Info Date of Service: 10/01/21 Subjective Update: No acute events overnight. Patient reports that he feels well. No complaints of dyspnea. No chest pain. No fevers. Supplemental oxygen has been weaned down to 4 L. Functional Status: Reports: Pain Controlled, Tolerating Diet - Review of Systems General: Denies: Fever, Weakness Pulmonary: Denies: Shortness of Breath - Patient Data Vitals - Most Recent: Last Vital Signs Temp 35.8 C L 10/01/21 11:09 Pulse 87 10/01/21 11:09 Resp 18 10/01/21 11:09 BP 113/76 10/01/21 11:09 Pulse Ox 91 L 10/01/21 12:12 Weight - Most Recent: 79.379 kg I&O - Last 24 Hours: Intake & Output 09/30/21 10/01/21 10/01/21 22:59 06:59 14:59 Intake Total 500 850 Balance 500 850 Lab Results Last 24 Hours: Laboratory Results - last 24 hr 10/01/21 10/01/21 10/01/21 Range/Units 05:20 05:20 05:20 WBC 16.3 H (4.5-11.0) K/uL RBC 3.80 L (4.30-5.90) M/uL Hgb 10.8 L (12.0-15.0) g/dL Hct 32.4 L (40.0-54.0) % MCV 85 (80-98) fL MCH 28 (27-31) pg MCHC 33 (32-36) % Plt Count 533 H (150-400) K/uL D-Dimer, Quantitative 1007.57 H (0.0-500.0) ng/mL Sodium 131 L (140-148) mmol/L Potassium 4.2 (3.6-5.2) mmol/L Chloride 96 L (100-108) mmol/L Carbon Dioxide 23 (21-32) mmol/L Anion Gap 16.2 H (5.0-14.0) mmol/L BUN 30 H (7-18) mg/dL Creatinine 1.3 (0.8-1.3) mg/dL Est Cr Clr Drug Dosing 72.53 mL/min Estimated GFR (MDRD) 59 L (>60) Glucose 136 H (74-106) mg/dL Calcium 8.6 (8.5-10.1) mg/dL C-Reactive Protein 5.98 H (0.0-0.3) mg/dL Med Orders - Current: Current Medications Acetaminophen (Acetaminophen 325 Mg Tab) 650 mg PO Q4H PRN PRN Reason: Pain (Mild 1-3)/fever Baricitinib (Baricitinib 2 Mg Tab) 4 mg PO Q24H [facility] Stop: 10/12/21 14:01 Last Admin: 10/01/21 14:15 Dose: 4 mg Documented by: Calcium Carbonate/Glycine (Calcium Carbonate 500 Mg Tab.Chew) 1,000 mg PO Q2H PRN PRN Reason: Indigestion Last Admin: 09/30/21 02:10 Dose: 1,000 mg Documented by: Dexamethasone (Dexamethasone 4 Mg/Ml Sdv) 6 mg IVPUSH DAILY [facility] Stop: 10/07/21 09:01 Last Admin: 10/01/21 08:08 Dose: 6 mg Documented by: Enoxaparin Sodium (Enoxaparin 40 Mg/0.4 Ml Syringe) 40 mg SUBCUT Q24H [facility] Last Admin: 09/30/21 15:13 Dose: 40 mg Documented by: Remdesivir 100 mg/ Sodium (Chloride) 100 mls @ 100 mls/hr IV Q24H [facility] Stop: 10/02/21 14:59 Last Admin: 10/01/21 14:12 Dose: 100 mls/hr Documented by: Ondansetron HCl (Ondansetron 4 Mg/2 Ml Sdv) 4 mg IV Q4H PRN PRN Reason: Nausea/Vomiting Polyethylene Glycol (Polyethylene Glycol 3350 Powder 17 Gm Packet) 17 gm PO DAILY PRN PRN Reason: Constipation Sodium Chloride (Sodium Chloride 0.9% 10 Ml Syringe) 10 ml FLUSH ASDIRECTED PRN PRN Reason: Keep Vein Open Discontinued Medications Dexamethasone (Dexamethasone 4 Mg/Ml Sdv) 6 mg IVPUSH ONETIME ONE Stop: 09/28/21 12:59 Last Admin: 09/28/21 13:52 Dose: 6 mg Documented by: Sodium Chloride (Normal Saline) 1,000 mls @ 125 mls/hr IV ASDIRECTED TIN Sodium Chloride (Normal Saline) 100 mls @ 4 mls/sec IV ASDIRECTED TIN Stop: 09/28/21 11:31 Last Admin: 09/28/21 12:12 Dose: 4 mls/sec Documented by: Remdesivir 200 mg/ Sodium (Chloride) 250 mls @ 250 mls/hr IV ONETIME ONE Stop: 09/28/21 14:29 Last Admin: 09/28/21 13:52 Dose: 250 mls/hr Documented by: Iopamidol (Iopamidol 755 Mg/Ml 100 Ml Bottle) 100 ml IV . DIRECTED TIN Stop: 09/28/21 11:31 Last Admin: 09/28/21 12:12 Dose: 100 ml Documented by: Sodium Chloride (Sodium Chloride 0.9% 10 Ml Syringe) 10 ml FLUSH ASDIRECTED PRN PRN Reason: Keep Vein Open Last Admin: 09/28/21 10:35 Dose: 10 ml Documented by: Sodium Chloride (Sodium Chloride 0.9% 10 Ml Syringe) 10 ml FLUSH ONETIME PRN PRN Reason: per radiology protocol Stop: 09/28/21 11:27 Last Admin: 09/28/21 12:03 Dose: 10 ml Documented by: - Exam Quality Assessment: Supplemental Oxygen General: Alert, Oriented, Cooperative, No Acute Distress Lungs: Normal Respiratory Effort. No: Wheezing GI/Abdominal Exam: Soft, No Distention Extremities: No Pedal Edema Skin: Warm, Dry Psy/Mental Status: Alert, Normal Affect - Patient Data Lab Results Last 24 hrs: Laboratory Results - last 24 hr 10/01/21 10/01/21 10/01/21 Range/Units 05:20 05:20 05:20 WBC 16.3 H (4.5-11.0) K/uL RBC 3.80 L (4.30-5.90) M/uL Hgb 10.8 L (12.0-15.0) g/dL Hct 32.4 L (40.0-54.0) % MCV 85 (80-98) fL MCH 28 (27-31) pg MCHC 33 (32-36) % Plt Count 533 H (150-400) K/uL D-Dimer, Quantitative 1007.57 H (0.0-500.0) ng/mL Sodium 131 L (140-148) mmol/L Potassium 4.2 (3.6-5.2) mmol/L Chloride 96 L (100-108) mmol/L Carbon Dioxide 23 (21-32) mmol/L Anion Gap 16.2 H (5.0-14.0) mmol/L BUN 30 H (7-18) mg/dL Creatinine 1.3 (0.8-1.3) mg/dL Est Cr Clr Drug Dosing 72.53 mL/min Estimated GFR (MDRD) 59 L (>60) Glucose 136 H (74-106) mg/dL Calcium 8.6 (8.5-10.1) mg/dL C-Reactive Protein 5.98 H (0.0-0.3) mg/dL Result Diagrams: 10/01/21 05:20 10/01/21 05:20 Sepsis Event Note - Evaluation Sepsis Screening Result: Possible Sepsis Risk - Focused Exam Vital Signs: Vital Signs Temp Pulse Resp BP Pulse Ox 10/01/21 12:12 91 L 10/01/21 11:09 35.8 C L 87 18 113/76 96 10/01/21 07:48 36.6 C 87 20 123/75 95 10/01/21 07:24 96 10/01/21 04:00 80 98 - Problem List Review Problem List Initiated/Reviewed/Updated: Yes - Plan Plan:: ASSESSMENT AND PLAN COVID-19 PNEUMONIA-associated with acute hypoxic respiratory failure. Symptomatic onset 09/22. Steadily improving over the past couple of days. -Supplemental oxygen as needed, wean as able -Prone ventilation if possible -Repeat D-dimer and CRP every 2 to 3 days -Remdesivir 200 mg IV today, then 100 mg IV for an additional 4 days, (day 4 of 5) -Decadron 6 mg IV daily (day 4) -Continue baricitinib (day 3) -Follow-up labs in a.m. MAINTENANCE ISSUES -DVT prophylaxis; Lovenox 40 mg subcu daily -GI prophylaxis; not indicated -Armstrong catheter; not indicated -Nutrition; regular diet DISPOSITION-anticipate discharge to home after the hospital stay. Maksim Carlisle MD
[2021-10-01] MEDS: Enoxaparin 40 MG/0.4 ML Syringe SUBCUT SCH (16:27)
[2021-10-02] MEDS: Dexamethasone 4 MG/ML SDV IVPUSH SCH (09:50)
--- NOTE | 2021-10-02 14:10 | PCM.PN ---
- General Info Date of Service: 10/02/21 Subjective Update: No acute events overnight. Patient feels well today. No dyspnea or chest pain. Still on supplemental oxygen but needs are decreasing each day. Down to 2 L to day. Hoping to be able to go home in the near future. Functional Status: Reports: Pain Controlled, Tolerating Diet - Review of Systems Pulmonary: Denies: Shortness of Breath - Patient Data Vitals - Most Recent: Last Vital Signs Temp 36.7 C 10/02/21 10:19 Pulse 103 H 10/02/21 10:19 Resp 18 10/02/21 10:19 BP 116/73 10/02/21 10:19 Pulse Ox 95 10/02/21 13:01 Weight - Most Recent: 79.379 kg I&O - Last 24 Hours: Intake & Output 10/01/21 10/02/21 10/02/21 22:59 06:59 14:59 Intake Total 300 263 Balance 300 263 Med Orders - Current: Current Medications Acetaminophen (Acetaminophen 325 Mg Tab) 650 mg PO Q4H PRN PRN Reason: Pain (Mild 1-3)/fever Baricitinib (Baricitinib 2 Mg Tab) 4 mg PO Q24H TIN Stop: 10/12/21 14:01 Last Admin: 10/01/21 14:15 Dose: 4 mg Documented by: Calcium Carbonate/Glycine (Calcium Carbonate 500 Mg Tab.Chew) 1,000 mg PO Q2H PRN PRN Reason: Indigestion Last Admin: 09/30/21 02:10 Dose: 1,000 mg Documented by: Dexamethasone (Dexamethasone 4 Mg/Ml Sdv) 6 mg IVPUSH DAILY TIN Stop: 10/07/21 09:01 Last Admin: 10/02/21 09:50 Dose: 6 mg Documented by: Enoxaparin Sodium (Enoxaparin 40 Mg/0.4 Ml Syringe) 40 mg SUBCUT Q24H TIN Last Admin: 10/01/21 16:27 Dose: 40 mg Documented by: Remdesivir 100 mg/ Sodium (Chloride) 100 mls @ 100 mls/hr IV Q24H TIN Stop: 10/02/21 14:59 Last Admin: 10/01/21 14:12 Dose: 100 mls/hr Documented by: Ondansetron HCl (Ondansetron 4 Mg/2 Ml Sdv) 4 mg IV Q4H PRN PRN Reason: Nausea/Vomiting Polyethylene Glycol (Polyethylene Glycol 3350 Powder 17 Gm Packet) 17 gm PO DAILY PRN PRN Reason: Constipation Sodium Chloride (Sodium Chloride 0.9% 10 Ml Syringe) 10 ml FLUSH ASDIRECTED PRN PRN Reason: Keep Vein Open Discontinued Medications Dexamethasone (Dexamethasone 4 Mg/Ml Sdv) 6 mg IVPUSH ONETIME ONE Stop: 09/28/21 12:59 Last Admin: 09/28/21 13:52 Dose: 6 mg Documented by: Sodium Chloride (Normal Saline) 1,000 mls @ 125 mls/hr IV ASDIRECTED TIN Sodium Chloride (Normal Saline) 100 mls @ 4 mls/sec IV ASDIRECTED TIN Stop: 09/28/21 11:31 Last Admin: 09/28/21 12:12 Dose: 4 mls/sec Documented by: Remdesivir 200 mg/ Sodium (Chloride) 250 mls @ 250 mls/hr IV ONETIME ONE Stop: 09/28/21 14:29 Last Admin: 09/28/21 13:52 Dose: 250 mls/hr Documented by: Iopamidol (Iopamidol 755 Mg/Ml 100 Ml Bottle) 100 ml IV . DIRECTED TIN Stop: 09/28/21 11:31 Last Admin: 09/28/21 12:12 Dose: 100 ml Documented by: Sodium Chloride (Sodium Chloride 0.9% 10 Ml Syringe) 10 ml FLUSH ASDIRECTED PRN PRN Reason: Keep Vein Open Last Admin: 09/28/21 10:35 Dose: 10 ml Documented by: Sodium Chloride (Sodium Chloride 0.9% 10 Ml Syringe) 10 ml FLUSH ONETIME PRN PRN Reason: per radiology protocol Stop: 09/28/21 11:27 Last Admin: 09/28/21 12:03 Dose: 10 ml Documented by: - Exam Quality Assessment: Supplemental Oxygen General: Alert, Oriented, Cooperative, No Acute Distress Lungs: Normal Respiratory Effort GI/Abdominal Exam: Soft, No Distention Extremities: No Pedal Edema Psy/Mental Status: Alert, Normal Affect - Patient Data Result Diagrams: 10/01/21 05:20 10/01/21 05:20 Sepsis Event Note - Evaluation Sepsis Screening Result: No Definite Risk - Focused Exam Vital Signs: Vital Signs Temp Pulse Resp BP Pulse Ox 10/02/21 13:01 95 10/02/21 12:52 94 L 10/02/21 10:19 36.7 C 103 H 18 116/73 94 L 10/02/21 07:13 96 10/02/21 07:00 36.7 C 96 18 126/72 97 10/02/21 02:16 36.1 C 83 16 127/86 95 - Problem List Review Problem List Initiated/Reviewed/Updated: Yes - My Orders Last 24 Hours: My Active Orders 10/03/21 05:00 BASIC METABOLIC PANEL,BMP [CHEM] Timed C-REACTIVE PROTEIN [CHEM] Timed CBC W/O DIFF,HEMOGRAM [HEME] Timed (1) D-DIMER QUANTITATIVE [COAG] Timed - Plan Plan:: ASSESSMENT AND PLAN COVID-19 PNEUMONIA-associated with acute hypoxic respiratory failure. Symptomatic onset 09/22. Steadily improving over the past couple of days and do wn to just 2 L of oxygen today. -Supplemental oxygen as needed, wean as able -Prone ventilation if possible -Repeat D-dimer and CRP every 2 to 3 days -Remdesivir 200 mg IV today, then 100 mg IV for an additional 4 days, (day 5 of 5) -Decadron 6 mg IV daily (day 5) -Continue baricitinib (day 4) -Follow-up labs in a.m. MAINTENANCE ISSUES -DVT prophylaxis; Lovenox 40 mg subcu daily -GI prophylaxis; not indicated -Armstrong catheter; not indicated -Nutrition; regular diet DISPOSITION-anticipate discharge to home after the hospital stay, likely tomorrow if stable overnight. Hoping to complete his course of remdesivir today. Maksim Carlisle MD
[2021-10-02] MEDS: REMDESIVIR 100 MG in Sodium Chloride 0.9% 100 ML IV SCH (14:39)
[2021-10-02] MEDS: Enoxaparin 40 MG/0.4 ML Syringe SUBCUT SCH (15:37)
[2021-10-03] MEDS: Dexamethasone 4 MG/ML SDV IVPUSH SCH (10:16)
--- NOTE | 2021-10-03 12:25 | PCM.DCSUM1 ---
Discharge Summary - Hospital Course Brief History: Healthy 46-year-old male who presented with cough and shortness of breath. He was admitted for management of COVID-19 pneumonia with acute respiratory failure with hypoxia. Diagnosis: Stroke: No - Discharge Data Discharge Date: 10/03/21 Discharge Disposition: Home, Self-Care 01 Condition: Good - Referral to Home Health Primary Care Physician: PCP None - Discharge Diagnosis/Problem(s) (1) Pneumonia due to 2019 novel coronavirus SNOMED Code(s): 441794605936362952 ICD Code: U07.1 - COVID-19; J12.82 - PNEUMONIA DUE TO CORONAVIRUS DISEASE 2019 Status: Acute (2) Acute respiratory failure due to COVID-19 SNOMED Code(s): 352924151 ICD Code: U07.1 - COVID-19; J96.00 - ACUTE RESPIRATORY FAILURE, UNSP W HYPOXIA OR HYPERCAPNIA Status: Acute - Patient Summary/Data Hospital Course: Enrique presented to the emergency room with increasing cough, shortness of breath and weakness. Work-up in the emergency room suggested pneumonia due to COVID-19 along with acute respiratory failure and hypoxia. He was started on dexamethasone, remdesivir, enoxaparin and supplemental oxygen and was admitted to the hospital for further management. Initially overnight he was relatively stable but then had a progressive increase in his supplemental oxygen requirements. We did review the indications and potential risks of starting baricitinib and he was interested in starting this medication. Over the next couple of days his respiratory status stabilized and then has steadily improved since that time. His dyspnea has essentially resolved and he has been up and walking around. He has not had any fevers. His inflammatory markers have all trended down though they have not quite normalized. We were able to wean him down and eventually off of his supplemental oxygen on the day of discharge. He has completed 5 days of remdesivir and 4 days of baricitinib along with 5 days of steroids. He feels well and is interested in going home at this time. He will be on a baby aspirin for DVT prophylaxis given the near normalization of his D-dimer. Now that he is off supplemental oxygen we will discontinue the steroids and baricitinib. He will increase his activity as tolerated and follow-up as needed. - Patient Instructions Diet: Regular Diet as Tolerated Activity: As Tolerated Driving: May Drive Today Showering/Bathing: May Shower Other/Special Instructions: You were in the hospital for management of COVID-19 pneumonia complicated by acute respiratory failure with hypoxia. Your condition has been improving with treatment provided here in the hospital. You are no longer requiring supplemental oxygen. You have completed adequate treatment with a combination of dexamethasone, remdesivir and baricitinib. I would encourage you to take a baby aspirin once daily for at least the next 2 weeks to help reduce your risk of blood clot. You may increase your activity as tolerated. You should remain in quarantine through October 07. Starting on October 08 you may return to your normal activities and may return to work without any quarantine or restrictions. - Discharge Plan *PRESCRIPTION DRUG MONITORING PROGRAM REVIEWED*: Not Applicable *COPY OF PRESCRIPTION DRUG MONITORING REPORT IN PATIENT MIKAELA: Not Applicable Prescriptions/Med Rec: Aspirin [Halfprin] 81 mg PO DAILY #30 tab.ec Home Medications: Home Meds Aspirin [Halfprin] 81 mg PO DAILY #30 tab.ec 10/03/21 [Rx] Oxygen Therapy Mode: Room Air Patient Handouts: Fall Prevention in the Home, Adult, [id number], COVID-19, Hypoxemia Referrals: Annika Light MD [Ordering Only Provider] - 10/09/21 1:40 pm (Please arrive 15 minutes early to register for your appointment.) - Discharge Summary/Plan Comment DC Time >30 min.: No Total # of Minutes for Discharge Time: 25 - Patient Data Vitals - Most Recent: Last Vital Signs Temp 36.8 C 10/03/21 10:25 Pulse 110 H 10/03/21 10:25 Resp 18 10/03/21 10:25 BP 115/73 10/03/21 10:25 Pulse Ox 94 L 10/03/21 10:25 Weight - Most Recent: 79.379 kg I&O - Last 24 hours: Intake & Output 10/02/21 10/03/21 10/03/21 22:59 06:59 14:59 Intake Total 500 650 Balance 500 650 Lab Results - Last 24 hrs: Laboratory Results - last 24 hr 10/03/21 10/03/21 10/03/21 Range/Units 06:39 06:39 06:40 WBC 21.1 H (4.5-11.0) K/uL RBC 3.71 L (4.30-5.90) M/uL Hgb 10.3 L (12.0-15.0) g/dL Hct 31.7 L (40.0-54.0) % MCV 85 (80-98) fL MCH 28 (27-31) pg MCHC 33 (32-36) % Plt Count 579 H (150-400) K/uL D-Dimer, Quantitative 527.42 H (0.0-500.0) ng/mL Sodium 134 L (140-148) mmol/L Potassium 5.4 H (3.6-5.2) mmol/L Chloride 99 L (100-108) mmol/L Carbon Dioxide 25 (21-32) mmol/L Anion Gap 15.4 H (5.0-14.0) mmol/L BUN 25 H (7-18) mg/dL Creatinine 1.2 (0.8-1.3) mg/dL Est Cr Clr Drug Dosing 78.58 mL/min Estimated GFR (MDRD) > 60 (>60) Glucose 100 (74-106) mg/dL Calcium 8.2 L (8.5-10.1) mg/dL C-Reactive Protein 2.04 H (0.0-0.3) mg/dL Med Orders - Current: Current Medications Acetaminophen (Acetaminophen 325 Mg Tab) 650 mg PO Q4H PRN PRN Reason: Pain (Mild 1-3)/fever Baricitinib (Baricitinib 2 Mg Tab) 4 mg PO Q24H [facility] Stop: 10/12/21 14:01 Last Admin: 10/02/21 14:41 Dose: 4 mg Documented by: Calcium Carbonate/Glycine (Calcium Carbonate 500 Mg Tab.Chew) 1,000 mg PO Q2H PRN PRN Reason: Indigestion Last Admin: 09/30/21 02:10 Dose: 1,000 mg Documented by: Dexamethasone (Dexamethasone 4 Mg/Ml Sdv) 6 mg IVPUSH DAILY [facility] Stop: 10/07/21 09:01 Last Admin: 10/03/21 10:16 Dose: 6 mg Documented by: Enoxaparin Sodium (Enoxaparin 40 Mg/0.4 Ml Syringe) 40 mg SUBCUT Q24H [facility] Last Admin: 10/02/21 15:37 Dose: 40 mg Documented by: Ondansetron HCl (Ondansetron 4 Mg/2 Ml Sdv) 4 mg IV Q4H PRN PRN Reason: Nausea/Vomiting Polyethylene Glycol (Polyethylene Glycol 3350 Powder 17 Gm Packet) 17 gm PO DAILY PRN PRN Reason: Constipation Sodium Chloride (Sodium Chloride 0.9% 10 Ml Syringe) 10 ml FLUSH ASDIRECTED PRN PRN Reason: Keep Vein Open Discontinued Medications Dexamethasone (Dexamethasone 4 Mg/Ml Sdv) 6 mg IVPUSH ONETIME ONE Stop: 09/28/21 12:59 Last Admin: 09/28/21 13:52 Dose: 6 mg Documented by: Sodium Chloride (Normal Saline) 1,000 mls @ 125 mls/hr IV ASDIRECTED TIN Sodium Chloride (Normal Saline) 100 mls @ 4 mls/sec IV ASDIRECTED TIN Stop: 09/28/21 11:31 Last Admin: 09/28/21 12:12 Dose: 4 mls/sec Documented by: Remdesivir 200 mg/ Sodium (Chloride) 250 mls @ 250 mls/hr IV ONETIME ONE Stop: 09/28/21 14:29 Last Admin: 09/28/21 13:52 Dose: 250 mls/hr Documented by: Remdesivir 100 mg/ Sodium (Chloride) 100 mls @ 100 mls/hr IV Q24H TIN Stop: 10/02/21 14:59 Last Admin: 10/02/21 14:39 Dose: 100 mls/hr Documented by: Iopamidol (Iopamidol 755 Mg/Ml 100 Ml Bottle) 100 ml IV . DIRECTED [facility] Stop: 09/28/21 11:31 Last Admin: 09/28/21 12:12 Dose: 100 ml Documented by: Sodium Chloride (Sodium Chloride 0.9% 10 Ml Syringe) 10 ml FLUSH ASDIRECTED PRN PRN Reason: Keep Vein Open Last Admin: 09/28/21 10:35 Dose: 10 ml Documented by: Sodium Chloride (Sodium Chloride 0.9% 10 Ml Syringe) 10 ml FLUSH ONETIME PRN PRN Reason: per radiology protocol Stop: 09/28/21 11:27 Last Admin: 09/28/21 12:03 Dose: 10 ml Documented by:
== END 2021-10-03 13:17 | disposition home or self-care (01) | DRG 177 ==
LOC: JP.ED 09:53 → JP.2SS 13:56
PROVIDERS: ADMIT Hospitalist; ATTEND Internal Medicine
PROC: XW033E5 Introduction of Remdesivir Anti-infective into Peripheral Vein, Percutaneous Approach, New Technology Group 5 (ICD-10-PCS; principal; 2021-09-28)
PROC: 3E0333Z Introduction of Anti-inflammatory into Peripheral Vein, Percutaneous Approach (ICD-10-PCS; 2021-09-28)
PROC: XW0DXM6 Introduction of Baricitinib into Mouth and Pharynx, External Approach, New Technology Group 6 (ICD-10-PCS; 2021-09-28)
DX: U07.1 COVID-19 (principal); J12.82 Pneumonia due to coronavirus disease 2019; J96.01 Acute respiratory failure with hypoxia; Z79.82 Long term (current) use of aspirin; H54.7 Unspecified visual loss
CPT/HCPCS: 36415; 71275; 80048; 80053; 85025; 85027; 85379; 86140; 94762; 96374; 99221; 99232; 99238; 99285-25; A9270-GY; J1100; J1650; J7050; Q9967; U0002